=== PATIENT | female | born 1965 | race Caucasian/White ===

== ENCOUNTER 2017-01-13 08:09 | Emergency (ER) | payer BC ==
[~2017-01-13 08:09] MED LIST: BUSPAR15 MG PO; EFFEXOR100 MG PO; LAMICTAL150 MG PO; LISINOPRIL-HCTZ PO; LUNESTA3 MG PO; NORCO 5/3251 TAB PO; OMEPRAZOLE20 M2 PO; RITALIN20 MG PO; THIOTHIXENE2 MG PO
[2017-01-13] MEDS ORDERED: KLONOPIN0.5 M1 PO (08:51)
[2017-01-13] MEDS ORDERED: BUPROPION XL150 M1 PO (08:52)
[2017-01-13] MEDS ORDERED: AMBIEN10 M1 PO (08:52)
[2017-01-13] MEDS ORDERED: ADDERALL 2020 MG/TAB PO (08:53)
[2017-01-13] MEDS ORDERED: VIIBRYD40 M1 PO (08:53)
[2017-01-13] MEDS ORDERED: VRAYLAR3 MG PO (08:53)
[2017-01-13] MEDS ORDERED: OMEPRAZOLE20 M3 PO (08:54)
[2017-01-13] MEDS ORDERED: LISINOPRIL-HCT1 EAC1 PO (08:54)
[2017-01-13] MEDS ORDERED: SYNTHROID75 MC1 PO (08:54)
[2017-01-13 09:14] LABS: URINE BILIRUBIN NEGATIVE (NEG); URINE BLOOD LARGE (NEG); URINE GLUCOSE (UA) NEGATIVE (NEG); URINE KETONE NEGATIVE (NEG); URINE LEUKOCYTE ESTERASE POSITIVE (NEG); URINE NITRITE NEGATIVE (NEG); URINE PH 6.5 (5.0-8.0); URINE PROTEIN MODERATE (NEG); URINE SPECIFIC GRAVITY 1.005 (1.003-1.030)
[2017-01-13 09:17] LABS: URINE APPEARANCE CLEAR; URINE COLOR PALE YELLOW
[2017-01-13 09:20] LABS: URINE EPITHELIAL CELLS 0-1 /[HPF] (0-10)
[2017-01-13 09:25] LABS: BASO % 0.2 % (0-2); EOS % 1.1 % (0-7); EOSINOPHIL ABSOLUTE COUNT 0.2 tho/cmm (0.0-0.7); HCT-HEMATOCRIT 39.3 % (34.0-49.0); HGB-HEMOGLOBIN 13.3 gm/dl (12.0-15.5); IMMATURE GRANULOCYTES ABSOLUTE 0.07 tho/cmm (0-0.03); IMMATURE GRANULOCYTES PERCENT 0.4 % (0-0.3); LYMPH % 14.8 % (20-45); LYMPH ABSOLUTE COUNT 2.4 tho/cmm (0.8-4.5); MCH (MEAN CORPUSCULAR HGB) 29.8 pg (28.0-32.0); MCHC MEAN CORPUSCULAR HGB CONC 33.8 % (32.0-36.0); MCV (MEAN CELL VOLUME) 87.9 fl (82.0-96.0); MEAN PLATELET VOLUME 9.9 cmc (9.4-12.4); MONO % 11.7 % (0-12); MONOCYTE ABSOLUTE COUNT 1.9 tho/cmm (0.0-1.2); NEUTROPHIL ABSOLUTE COUNT 11.7 tho/cmm (1.6-8.0); NEUTROPHIL-AUTOMATED 11.7 tho/cmm (1.6-8.0); NEUTROPHILS % 71.8 % (40-80); PLATELET COUNT 387 tho/cmm (150-450); RED BLOOD COUNT 4.47 mil/cmm (4.00-5.20); WHITE BLOOD COUNT 16.3 tho/cmm (4.0-10.0)
[2017-01-13 09:35] LABS: ANION GAP 13 mmol/L (0-20); BLOOD UREA NITROGEN 14 mg/dl (6-24); CALCIUM 9.7 mg/dl (8.5-10.5); CARBON DIOXIDE-VENOUS 27 mmol/L (22-32); CHLORIDE 102 mmol/l (96-110); CREATININE 0.88 mg/dl (0.50-1.10); GLUCOSE 107 mg/dL (70-110); SODIUM 138 mmol/L (135-145); eGFR VALUE FOR BLACK 87 mL/Min
[2017-01-13] MEDS ORDERED: ZOFRAN ODT4 MG PO (10:39)
[2017-01-13] MEDS ORDERED: KEFLEX500 M4 PO (10:39)
[2017-01-13] MEDS ORDERED: NORCO 5/3251 TAB PO (10:39)
== END 2017-01-13 11:12 ==
LOC: EDMED 08:09
PROVIDERS: Emergency Medicine
DX: N39.0 Urinary tract infection, site not specified (principal); I10 Essential (primary) hypertension; F41.9 Anxiety disorder, unspecified; F32.9 Major depressive disorder, single episode, unspecified; F17.200 Nicotine dependence, unspecified, uncomplicated; Z79.899 Other long term (current) drug therapy
CPT/HCPCS: J0696; J1170; J1885; J2405; P9612